=== PATIENT | female | born 2000 | race African-American/Black ===

== ENCOUNTER 2019-08-26 17:41 | Emergency (ER) | payer OTHER, SELFPAY ==
[2019-08-26] MEDS ORDERED: Ibuprofen 800 MG TAB ONE (18:04)
[2019-08-26] MEDS ORDERED: Cephalexin 250 MG CAP ONE (18:04)
[2019-08-26] MEDS ORDERED: Bacitracin 1 PK ONE (18:04)
[2019-08-26] MEDS ORDERED: Adacel (T-DAP) 0.5 ML SYRINGE ONE (18:04)
[2019-08-26] MEDS ORDERED: Lidocaine 2% w/Epinephrine 1:200K 20 ML VIAL ONE (18:04)
[2019-08-26] MEDS ORDERED: Lidocaine 2% PF 5 ML VIAL ONE (18:08)
--- NOTE | 2019-08-27 06:51 | RAD ---
LEFT GREAT TOE 3 VIEWS: DATE: 08/26/2019. FINDINGS: No fracture or opaque foreign body was seen. The bones and joints appear normal. IMPRESSION: No acute findings. POS: HOME
== END 2019-08-26 18:52 | disposition home or self-care (01) ==
LOC: BURERS 17:41
DX: S91.112A Laceration without foreign body of left great toe without damage to nail, initial encounter (principal); W22.8XXA Striking against or struck by other objects, initial encounter
CPT/HCPCS: 90715; J2001